=== PATIENT | female | born 1990 | race Caucasian/White ===

== ENCOUNTER 2017-11-11 13:16 | Emergency (ER) | payer MEDICAID ==
--- NOTE | 2017-11-11 13:46 | EDM.PDOC ---
ED HPI GENERAL MEDICAL PROBLEM - General Chief Complaint: Skin Complaint Stated Complaint: DOG BITE Time Seen by Provider: 11/11/17 13:25 Source of Information: Reports: Patient History Limitations: Reports: No Limitations - History of Present Illness INITIAL COMMENTS - FREE TEXT/NARRATIVE: 18-year-old female who got bit on the left thumb by a dog last night, it was her own pet that was choking and she was trying to help but when she got bit. Today the thumb is very sore and painful and swollen and she is concerned about infection. Onset: Other (Last evening) Location: Reports: Upper Extremity, Left Right 1-Thumb Pain Score (Numeric/FACES): 9 - Related Data Allergies Allergy/AdvReac Type Severity Reaction Status Date / Time No Known Allergies Allergy Verified 11/11/17 13:44 Home Meds: Home Meds Diclofenac Sodium [Voltaren] 75 mg PO BID 11/11/17 [History] ED ROS GENERAL - Review of Systems Review Of Systems: See Below Constitutional: Denies: Fever, Chills Respiratory: Denies: Shortness of Breath GI/Abdominal: Denies: Nausea, Vomiting Neurological: Reports: Paresthesia (Thumb feels numb) ED EXAM, SKIN/RASH Exam: See Below Exam Limited By: No Limitations General Appearance: Alert, No Apparent Distress Respiratory/Chest: No Respiratory Distress Extremities: Other (Exam is otherwise limited to the left hand. The patient has a puncture wound on the palmar and dorsal aspect of the thumb at the IP joint. There is moderate swelling and bruising and pain with movement of the joint) Course - Vital Signs Last Recorded V/S: Last Vital Signs Temp 97 F 11/11/17 13:41 Pulse 95 11/11/17 13:41 Resp 18 11/11/17 13:41 BP 108/70 11/11/17 13:41 Pulse Ox 97 11/11/17 13:41 - Re-Assessments/Exams Free Text/Narrative Re-Assessment/Exam: 11/11/17 13:44 Patient was placed on Augmentin 875 mg twice a day and encouraged to recheck if worsening despite treatment. A fair amount of the symptoms including swelling and pain is likely inflammatory rather than infection and will take some time. Departure - Departure Time of Disposition: 13:51 Disposition: Home, Self-Care 01 Condition: Good Clinical Impression: Dog bite of left hand Qualifiers: Encounter type: initial encounter Qualified Code(s): S61.452A - Open bite of left hand, initial encounter - Discharge Information Instructions: Animal Bite, [id number] Referrals: PCP,None [Primary Care Provider] - Forms: ED Department Discharge Care Plan Goals: Take Augmentin with food twice a day for at least 5 days and up to 10 days if needed. Continue with your other regular medications, increase activity with the thumb as tolerated and recheck if not improving satisfactorily. Return anytime if worsening such as increased redness or swelling despite treatment
== END 2017-11-11 13:58 | disposition home or self-care (01) ==
LOC: JP.ED 13:16
DX: S61.052A Open bite of left thumb without damage to nail, initial encounter (principal); W54.0XXA Bitten by dog, initial encounter
CPT/HCPCS: 99283

== ENCOUNTER 2025-10-13 06:15 | Day surgery (SDC) | payer OTHER ==
[2025-10-13] MEDS ORDERED: fentaNYL 50 MCG/ML SDV ONE (07:01)
[2025-10-13] MEDS ORDERED: Midazolam 1 MG/ML 2 ML SDV ONE (07:01)
[2025-10-13] MEDS ORDERED: Propofol 200 MG/20 ML SDV ONE ×3 (07:01→08:15)
[2025-10-13] MEDS: Lactated Ringers 1,000 ML IV SCH (07:19)
[2025-10-13] MEDS ORDERED: Lactated Ringers 1,000 ML ONE (08:20)
== END 2025-10-13 10:01 | disposition home or self-care (01) ==
LOC: JP.SDS 06:15
PROVIDERS: ATTEND Surgery
DX: K29.80 Duodenitis without bleeding (principal); K29.70 Gastritis, unspecified, without bleeding; K64.8 Other hemorrhoids; Z88.8 Allergy status to other drugs, medicaments and biological substances; Z91.041 Radiographic dye allergy status; Z91.040 Latex allergy status; Z91.018 Allergy to other foods; Z79.899 Other long term (current) drug therapy
CPT/HCPCS: 00813-QZ; 81025; 88305; J2250; J2704; J3010; J7120